=== PATIENT | female | born 1960 | race Caucasian/White ===

== ENCOUNTER → 2018-07-20 | Outpatient (CLI) | payer OTHER, SELFPAY ==
--- NOTE | 2018-07-17 09:31 | COLBX_PTH ---
PATIENT: JOSE IVORY LOC: [facility] U#:[id number] AGE/SX: 58/F ROOM: RE07/20/[address]: Dr. Jeramie Mary MD : 1960 BED: DIS: 07/20/2018 SPEC #: [id number] RECD: 07/20/18 15:27 STATUS: MEHRDAD ZAHRA #: [id number] JERRY: 07/17/18 09:[address]: Jeramie Mary DEPT: SURGICAL PATHOLOGY RECD BY: Hasmukh Dyer ENTERED: 07/21/18 09:22 SP TYPE: COLON BX OTHR DR: Dr. Jose Eldridge MD [facility] [place] Tissues: Rectum, NOS Procedures: Surgery Specimen Level IV HEADER OPERATION: Colonoscopy with biopsies PRE-OP DIAGNOSIS: Abdomen pain/constipation TISSUE SUBMITTED: Polyp biopsy rectum, rule out adenoma MICROSCOPIC DIAGNOSIS Rectal polyp, biopsy: Fragments of hyperplastic polyp. AM:talita 07/22/18 MICROSCOPIC DESCRIPTION Slides are reviewed. GROSS DESCRIPTION Received in fixative is one container labeled with the patient's name and designated rectum polyp biopsy. The specimen consists of two irregular fragments of light thayer soft tissue that in aggregate measure 0.5 x 0.3 x 0.1 cm. The specimen is totally submitted in one cassette. / SJ:rg 07/21/18 TC:5 CPT: 25247
== END | disposition home or self-care (01) ==
LOC: LABSPEC 15:45
PROVIDERS: Referring Provider Internal Medicine Gastroenterology; Visit Provider Internal Medicine Gastroenterology
DX: K62.1 Rectal polyp (principal); R10.9 Unspecified abdominal pain; K59.00 Constipation, unspecified
CPT/HCPCS: 88305

== ENCOUNTER 2018-07-22 07:34 | Observation (INO) | payer OTHER, SELFPAY ==
--- NOTE | 2018-07-16 12:20 | EKG12_ITS ---
Test Reason : PREOP Blood Pressure : / mmHG Vent. Rate : 067 BPM Atrial Rate : 067 BPM P-R Int : 134 ms QRS Dur : 068 ms QT Int : 398 ms P-R-T Axes : 063 -06 065 degrees QTc Int : 420 ms Normal sinus rhythm Low voltage QRS Borderline ECG Confirmed by PRITI BERKOWITZ, SHONDA ([id number]), senior editor DHARA CONTRERAS ([id number]) on 07/17/2018 6:03:43 AM Referred By: Jose Espinoza Confirmed By:HSONDA MARCOS MD
--- NOTE | 2018-07-16 12:27 | RAD_ITS ---
STUDY: X-RAY CHEST REASON FOR EXAM: Female, 58 years old. Preoperative evaluation. Cough. TECHNIQUE: PA and lateral views of the chest. COMPARISON: None. FINDINGS: Hyperinflation. The lungs are clear. There is no demonstrated pleural abnormality. Normal size heart. Normal mediastinum and vicki. Normal visualized pulmonary arteries. There is atherosclerotic tortuosity of the aortic arch and descending thoracic aorta. There are diffuse degenerative changes of the visualized thoracic spine. Normal visualized ribs, clavicles, and shoulders. There is no demonstrated abnormality of the visualized soft tissue structures of the upper abdomen. RAD/Chest PA and Lateral IMPRESSION: Hyperinflation. The lungs are clear. Electronically Signed: Cedric Gibson, at 13:57 EDT , Service support ,
[2018-07-16 13:16] LABS: Prothrombin Time (Protime)PT. 13.1 SECONDS (11.7-14.9)
[2018-07-16 13:17] LABS: Partial Thromboplast Time 30.9 Seconds (24.1-36.2)
[2018-07-16 13:22] LABS: Internal QC Validated? YES +Cl - CLEAR BKGD; Pregnancy, Serum, hCG Quali. NEGATIVE Negative
[2018-07-16 13:23] LABS: Hematocrit 42.3 % (37-47); Hemoglobin 13.5 g/dl (12.0-15.0); Mean Corp Hgb Conc 31.9 g/gl (32-36); Mean Platelet Vol. 9.3 fl (6.2-12.0); Platelet Count 390 K/mm3 (150-450); RBC Distribution Width CV 13.3 % (11.6-14.6); RBC Distribution Width SD 44.4 fl (35.1-43.9); White Blood Count 10.9 K/mm3 (4.4-11.0)
[2018-07-16 13:24] LABS: Scan Indicated on CBC? Y/N NO
[2018-07-16 13:33] LABS: ALB/GLOB Ratio 0.6 RATIO (0.9-2.4); AST(SGOT) 41 U/L (15-37); Alanine Aminotransfer ALT/SGPT 32 U/L (13-56); Albumin, Serum 3.6 g/dL (3.2-5.0); Alkaline Phosphatase 130 U/L (45-117); Anion Gap 5 (5-15); BUN 10 mg/dL (7-18); BUN/Creat Ratio 14.5 RATIO (10-20); Calcium,Total 9.6 mg/dL (8.5-10.1); Chloride 103 mmol/L (98-107); Creatinine, Serum 0.69 mg/dL (0.55-1.02); EST Glomerular Filtration Rate 94 mL/min (>60); Est Glom Filt Rate - Afr Amer 113 mL/min (>60); Globulin 5.7 g/dL (2.2-4.2); Glucose 116 mg/dL (74-106); Protein, Total 9.3 g/dL (6.4-8.2); Sodium Level 137 mmol/L (136-145)
[2018-07-22] VITALS (13 sets, daily range): BP systolic 84–130; BP diastolic 55–82; PULSE 58–85; RESP 16–19; TEMP 36.2–37.6; O2SAT 94–100; BMI 23.1
--- NOTE | 2018-07-22 07:30 | HYST_PTH ---
PATIENT: JOSE IVORY LOC: MS2 U#:[id number] AGE/SX: 58/F ROOM: [facility] [place] RE07/22/[address]: Dr. Jose Espinoza MD : 1960 BED: 1 DIS: 07/23/2018 SPEC #: [id number] RECD: 07/22/18 10:10 STATUS: MEHRDAD RESherine #: [id number] JERRY: 07/22/18 07:[address]: Jose Espinoza DEPT: SURGICAL PATHOLOGY RECD BY: Addie Gray ENTERED: 07/22/18 11:46 SP TYPE: HYSTERECT OTHR DR: Dr. Jose Eldridge MD Tissues: Uterus, NOS Procedures: Surgery Specimen Level V HEADER OPERATION: Laparoscopic, bilateral salpingo-oophorectomy, anterior repair, poss posterior PRE-OP DIAGNOSIS: Cystocele, midline, incomplete uterovaginal prolapse TISSUE SUBMITTED: Uterus, bilateral fallopian tubes and ovaries MICROSCOPIC DIAGNOSIS Uterus, bilateral fallopian tubes and ovaries, hysterectomy and bilateral salpingo-oophorectomy: Cervix - mild chronic cystic cervicitis. Endometrium - inactive endometrium. Myometrium - medial calcification of blood vessel huang. Bilateral fallopian tubes - no pathologic diagnosis. Right ovary - mesothelial inclusion cysts. Left ovary - no pathologic diagnosis. SJ:talita 07/23/18 MICROSCOPIC DESCRIPTION Slides are reviewed. GROSS DESCRIPTION Received in fixative is one container labeled with the patient's name and designated uterus. The specimen consists of a uterus with attached cervix and attached portion of right and left fallopian tubes and right and left ovaries. The uterus with cervix measures 9 x 5 x 2.5 cm and weighs 70 gm. The ectocervix is unremarkable. The cervical os is oval in contour. The endocervical canal measures 3 cm in length and is grossly unremarkable. The triangular endometrial cavity measures 3.4 x 2.6 cm. The velvety, light thayer endometrium measures up to 0.2 cm in thickness. The myometrium measures 1.6 cm in average thickness and is free of mass lesions. The smooth, glistening and crinkled right ovary measures 2.2 x 1 x 0.8 cm. Serial sections do not reveal mass lesions. The right fallopian tube segment measures 2.6 cm in length and 0.5 cm in average diameter. The left ovary is similar in appearance to the right ovary and measures 2.5 x 1 x 0.7 cm and likewise does not contain mass lesions. The left fallopian tube segment measures 2.5 cm in length and 0.4 cm in average diameter. [employer] sections are submitted as follows: 1 - anterior cervix, 2 - posterior cervix, 3 & 4 - anterior uterine wall, 5 & 6 - posterior uterine wall, 7 - right ovary and fallopian tube, 8 - left ovary and fallopian tube. / AM:talita 07/22/18 TC:5 CPT: 46687
--- NOTE | 2018-07-22 07:41 | DCINST_ITS ---
Discharge Diet: No Restrictions Discharge Activity: Return to Normal Activity, May Not Drive, May not drive while taking narcotic pain medications., May Shower Return to work on:: 08/24/18 May shower in (days): 0 May resume sexual activity in: 8 weeks Call your doctor if your incision/area has: Sudden Increased Bleeding, Increased Pain/ Swelling, Increased Redness, Foul Smelling Discharge, Swelling at the incision site Call your doctor if you observe: Fever of 101 or Higher, Inability to urinate, Inability to have a bowel movement, Using more than one pad per hour, Shortness of breath, Chest pain, Calf discomfort, Uncontrolled pain Remove Dressing in (days):: 2 Cleanse incision/area with: Soap & Water Allergies/Adverse Reactions: Allergies iohexol [From Omnipaque] Allergy (Verified 07/22/18 05:41) Shortness of breath Medications to take at Discharge Ibuprofen 600 mg PO 4X/DAY #30 tab 07/22/18 Oxycodone [Oxyir] 5 - 10 mg PO Q4H PRN PRN 7 Days #30 tab 07/22/18 The following prescriptions were given: Oxycodone [Oxyir] 5 - 10 mg PO Q4H PRN PRN 7 Days #30 tab PRN Reason: Mod-Severe Pain (4-10/10) Ibuprofen 600 mg PO 4X/DAY #30 tab Primary Care Physician: Jose Eldridge MD [Primary Care Provider] - Test Results: Test results from this visit will be discussed in further detail at your follow- up appointment, if applicable. Please Follow Up With: Jose Espinoza MD When: one week Proposed Discharge Date: 07/23/18
[2018-07-22] MEDS: Vasopressin 20 UNITS/ML Vial (08:54)
[2018-07-22] MEDS: Bupivacaine 0.25% 30 ML Vial (09:02)
--- NOTE | 2018-07-22 09:11 | OP.PCM_ITS ---
Report of Operation Date of Procedure: 07/22/18 Pre-Operative Diagnosis: Uterovaginal Prolapse Post-Operative Diagnosis: Same Surgery/Procedure Performed:: Laparoscopic Assited Vaginal Hysterectomy, Bilateral Salpingooophorectomy, Anterior Vaginal Repair Description of Surgical Findings:: Normal appearing uterus, ovaries, and fallopian tubal. Cystocele. Normal appearing liver, stomach, and gallbladder. rehabilitation inspector: Bro Lovelace Type of Anesthesia:: General Anesthesiologist: Tyler Johnson Special Medications: none Specimen's removed: Uterus, ovaries and fallopian tubes Drains: Finnegan Estimated Blood Loss (mL): 20cc Fluids Replaced: 1400cc LR Description of Procedure: Patient was taken to the OR with IV running. She was given two grams of Cefotetan intravenously prior to the surgery for prophylaxis. General a nesthesia was induced without complication. She was then prepped and draped in the dorsal lithotomy position. A finnegan catheter was placed. An acorn type uterine manipulator was placed. Attention was then directed to the abdomen. A 5 mm vertical incision was made in the lower base of the umbilicus. The underlying subcutaneous tissue was then dissected down to the level of the fascia. The abdominal wall was then elevated and a Veress needle was placed through the umbilical defect and the abdomen was inflated to 15 Torr pressure with CO2 gas. The Veress needle was then removed and a 5mm laparoscopic trocar and sleeve were placed through the umbilical defect into the abdomen. The trocar was removed and the laparoscope was placed. Findings were as mentioned above. Two lateral 5mm side ports were then placed one on the right and one on the left. They were placed about 5cm below the level of the umbilicus lateral to the inferior epigastric vessels. Hemostasis was excellent after port placement. The Ligasure device was used for all laparoscopic dissection. The left infindibulopelvic ligament was cauterized and cut. The mesoovarian tissue was then dissected to the level of the uterus. The left round ligament was then cauterized and cut. The Broad ligament was then dissected close to the uterus to the level of the cervicouterine junction. The anterior and posterior leaves were then bluntly and a bladder flap was created. The left uterine artery was then identified and then cauterized and cut. The paracervical tissue was then dissected closed to the cervix down to the level of the uterosacral ligament. In a similar fashion the right side was dissected down to the level of the right uterosacral ligament. Attention was then directed to the vagina. The uterine manipulator was removed and the cervix grasped with two single toothed tenaculum. The cervicovaginal epithelium was then injected with a dilute pitressin solution. Using the Bovie cautery the cervicovaginal epithelium was incised in a circumfrential manner. The vaginal mucosa was pushed superiorly. The vesicovaginal peritoneum was then identified and entered sharply. The rectovaginal peritoneum was identified and entered sharply. A long weighted speculum was placed through the posterior defect. Nabeel clamps were then placed across the uterosacral ligaments which were then cut and suture ligated. The remaining paracervical tissue on either side was grasped with Nabeel clamps, cut and suture ligated. The uterus ovaries and fallopian tubes were removed en bulk. The vaginal cuff angles were then closed with incorporation of the uterosacral ligaments. The vaginal mucosa was then closed in the midline with a single stitch of 0-Vicryl. The remainder of the vaginal mucosa was closed with figure of eight sutures of 0-Vicryl. Two Brent clamps were then placed in the anterior vagina. One just superior to the urethra and another towards the vaginal cuff. The mucosa was then incised and the underlying bladder was dissected off the vaginal mucosa. The vaginal mucosa was then trimmed and then reapproximated with interrupted sutures of 0-Vicryl. All instruments were then removed from the vagina. Attention was then directed to the abdomen which was reinflated. The cuff pedicles were inspected with good hemostasis noted. Buck was placed over the pelvic pedicles. The laparoscopic ports were then removed. The skin incisions were closed with 4-0 Monocryl suture. Sponge, lap, needle, and instrument counts were correct. She was reversed from anesthesia and taken to the recovery room in stable condition. Grafts/Implants Used: Buck to surgical base - Complications none - Admit VTE Documentation VTE Present on Admission: No VTE Mechan Device Prophylaxis: SCD's VTE Pharm Prophylaxis ordered?: No
[2018-07-22] MEDS: Dextrose 5%-Lactated Ringers 1,000 ML 125 ML IV ×3 (10:06→23:49)
[2018-07-22] MEDS: Ketorolac 30 MG/ML Syringe IV ×2 (13:38→19:29)
[2018-07-22] MEDS: Cefazolin 1 GM/50 ML BAG IV ×2 (15:12→23:49)
[2018-07-22] MEDS: Ondansetron 4 MG/2 ML Vial IV (16:07)
[2018-07-22] MEDS: oxyCODONE 5 MG Tablet PO (16:09)
[2018-07-22] MEDS: proMETHazine 25 MG/ML Syringe 12.5 MG IV (19:51)
[2018-07-23] MEDS: Ketorolac 30 MG/ML Syringe IV ×2 (01:43→06:13)
[2018-07-23 01:47] VITALS: BP 99/57; PULSE 83; RESP 16; TEMP 36.8; O2SAT 93
[2018-07-23 05:21] LABS: Hematocrit 32.7 % (37-47); Hemoglobin 10.6 g/dl (12.0-15.0); Mean Corp Hgb Conc 32.4 g/gl (32-36); Mean Corpuscular Hgb 30.5 pg (27.0-32.0); Mean Corpuscular Volume 94.2 fL (81-99); Platelet Count 323 K/mm3 (150-450); RBC Distribution Width CV 13.2 % (11.6-14.6); RBC Distribution Width SD 43.7 fl (35.1-43.9); Red Blood Count 3.47 M/mm3 (4.2-5.4); Scan Indicated on CBC? Y/N NO; White Blood Count 22.6 K/mm3 (4.4-11.0)
[2018-07-23 05:31] LABS: Creatinine, Serum 0.62 mg/dL (0.55-1.02); EST Glomerular Filtration Rate 105 mL/min (>60); Est Glom Filt Rate - Afr Amer 128 mL/min (>60); Estimated Creatinine Clearance 91.17 ml/min
[2018-07-23 07:45] VITALS: BP 92/64; PULSE 67; RESP 18; TEMP 36.7; O2SAT 97
[2018-07-23 08:34] VITALS: TEMP 36.6
--- NOTE | 2018-07-23 08:34 | PCM.PN.OB ---
Subjective: Sitting comfortably in chair. Pain reasonably controlled. Voiding. Tolerating PO Objective: Afeb VSS Urine output appropriate - Physical Exam General: Alert, Oriented x3, Cooperative, No apparent distress Lungs: Clear to auscultation, Normal air movement Cardiovascular: Regular rate, Regular Rhythm Abdomen: Soft, Non Tender, Non-Distended, - - Incision dressings dry Extremities: No edema Skin: No rashes Neurological: Neuro grossly intact Psych/Mental Status: Normal Affect Comment: Scant vaginal spotting Vital Signs Temp Pulse Resp BP Pulse Ox 98.0 F 67 18 92/64 97 07/23/18 07:45 07/23/18 07:45 07/23/18 07:45 07/23/18 07:45 07/23/18 07:45 Oxygen Flow Rate (L/min) 1 Oxygen Delivery Method Room Air Weight: 139 lb 1.787 oz Body Mass Index (BMI) 23.1 Intake and Output for Last 24 Hours 07/21/18 07/22/18 07/23/18 23:59 23:59 23:59 Intake Total 4402 / 4402 1371 / 1371 Output Total 1505 / 1505 1250 / 1250 Balance 2897 / 2897 121 / 121 Laboratory Tests Past 24 Hrs 07/23/18 07/23/18 05:00 05:00 WBC 22.6 H RBC 3.47 L Hgb 10.6 L Hct 32.7 L MCV 94.2 MCH 30.5 MCHC 32.4 RDW 13.2 RDW Differential 43.7 Plt Count 323 MPV 9.0 Creatinine 0.62 Estim Creat Clear Calc 91.17 Est GFR (MDRD) Af Amer 128 Est GFR (MDRD) Non-Af 105 Medical Necessity - Tobacco Use Smoking Status: Former smoker Tobacco Use: Non-smoker Assessment/Plan Doing well on POD#1. Cleared for discharge home today. Home going instructions and warnings given.
--- NOTE | 2018-07-23 08:36 | PCM.DC.SUM ---
Discharge Date and Diagnosis Date of Admission: 07/22/18 Date of Discharge: 07/23/18 - Primary Discharge Diagnosis S/P KAVH/VSO anterior vaginal repair Hospital Course and Treatment Operations: - - LAVH/BSO anterior repair Summary of Care Provided: The patient is a 58 year old F [admitted for surgery which was performed without complication. Post operative course unremarkable. Discharged home on POD#1.] - Physical Exam Vital Signs Temp Pulse Resp BP Pulse Ox 98.0 F 67 18 92/64 97 07/23/18 07:45 07/23/18 07:45 07/23/18 07:45 07/23/18 07:45 07/23/18 07:45 Oxygen Flow Rate (L/min) 1 Oxygen Delivery Method Room Air Weight: 139 lb 1.787 oz Body Mass Index (BMI) 23.1 Intake and Output for Last 24 Hours 07/21/18 07/22/18 07/23/18 23:59 23:59 23:59 Intake Total 4402 / 4402 1371 / 1371 Output Total 1505 / 1505 1250 / 1250 Balance 2897 / 2897 121 / 121 Laboratory Tests Past 24 Hrs 07/23/18 07/23/18 05:00 05:00 WBC 22.6 H RBC 3.47 L Hgb 10.6 L Hct 32.7 L MCV 94.2 MCH 30.5 MCHC 32.4 RDW 13.2 RDW Differential 43.7 Plt Count 323 MPV 9.0 Creatinine 0.62 Estim Creat Clear Calc 91.17 Est GFR (MDRD) Af Amer 128 Est GFR (MDRD) Non-Af 105 Discharge Diet: No Restrictions Discharge Activity: Return to Normal Activity, May Not Drive, May not drive while taking narcotic pain medications., May Shower Return to work on:: 08/24/18 May shower in (days): 0 May resume sexual activity in: 8 weeks Call your doctor if your incision/area has: Sudden Increased Bleeding, Increased Pain/ Swelling, Increased Redness, Foul Smelling Discharge, Swelling at the incision site Call your doctor if you observe: Fever of 101 or Higher, Inability to urinate, Inability to have a bowel movement, Using more than one pad per hour, Shortness of breath, Chest pain, Calf discomfort, Uncontrolled pain Remove Dressing in (days):: 2 Cleanse incision/area with: Soap & Water Home Medications: Medications to take at Discharge Ibuprofen 600 mg PO 4X/DAY #30 tab 07/22/18 Oxycodone [Oxyir] 5 - 10 mg PO Q4H PRN PRN 7 Days #30 tab 07/22/18 Following Prescrptions Were Given to Patient: Oxycodone [Oxyir] 5 - 10 mg PO Q4H PRN PRN 7 Days #30 tab PRN Reason: Mod-Severe Pain (-11/19) Ibuprofen 600 mg PO 4X/DAY #30 tab Primary Care Physician: Jose Eldridge MD [Primary Care Provider] - Please Follow Up With: oJse Espinoza MD When: one week Disposition: Home Minutes spent on discharge:: 15 Patient Condition:: Good Medical Necessity - Tobacco Use Smoking Status: Former smoker Tobacco Use: Non-smoker Meaningful Use Info Meaningful Use Diagnoses (Choose all that apply): None applicable
[2018-07-23] MEDS: oxyCODONE 5 MG Tablet PO (10:01)
== END 2018-07-23 10:48 | disposition home or self-care (01) ==
LOC: MS2 07-23 07:33
PROVIDERS: Admitting Provider Obstetrics & Gynecology; Referring Provider Obstetrics & Gynecology; Visit Provider Obstetrics & Gynecology
PROC: 0UT90ZZ Resection of Uterus, Open Approach (ICD-10-PCS; CPT 58150; principal; 2018-07-22 07:10)
DX: N81.2 Incomplete uterovaginal prolapse (principal); Z87.891 Personal history of nicotine dependence; N39.3 Stress incontinence (female) (male); N83.291 Other ovarian cyst, right side; N72 Inflammatory disease of cervix uteri; Q25.46 Tortuous aortic arch
CPT/HCPCS: 57240; 58552; 36415; 71046; 80053; 82565; 84703; 85027; 85610; 85730; 86850; 86900; 88307; 93005; 96361; 96365; 96366; 96375; 96376; 99218; J7120; G0378; G0379; J2405